=== PATIENT | female | born 1980 | race Caucasian/White ===

== ENCOUNTER 2017-02-11 20:30 | Emergency (ER) | payer BC ==
[2017-02-11 20:45] VITALS: BP 140/84
[2017-02-11] MEDS ORDERED: Bacitracin/Neomycin/Polymyxin B Oint 0.9 GM U/D Packet TOP ONE (21:53)
--- NOTE | 2017-02-11 22:07 | EDM.PDOC ---
ED HPI GENERAL MEDICAL PROBLEM - General Chief Complaint: General Stated Complaint: fall, lt shoulder pain Time Seen by Provider: 02/11/17 20:56 Source of Information: Reports: Patient History Limitations: Reports: No limitations - History of Present Illness INITIAL COMMENTS - FREE TEXT/NARRATIVE: Patient tripped on edge of decorative stone path and fell. Took most of the fall on the left shoulder area. Complains of left shoulder pain, left upper chest pain, bruising/scuffs right hand, and bruising on arms/legs/left breast. No LOC. Denies hitting head. Right knee is a bit sore but she is able to ambulate. No other complaints. ROS performed. Patient has some tingling in left arm since fall. No specific dermatomal pattern. ROS otherwise unremarkable except for above complaints. Patient has multiple chronic medical conditions including immune dysfunction and chronic pain. She also has numerous drug allergies and is on a large number of daily medications. This includes Plavix and Warfarin. She has had multiple clotting issues in past. Also recently on Lovenox after having surgery. Left Shoulder Pain Score (Numeric/FACES): 10 - Related Data Allergies Allergy/AdvReac Type Severity Reaction Status Date / Time aspirin Allergy Hives Verified 02/11/17 20:46 cefaclor Allergy Nausea and Verified 02/11/17 20:46 Vomiting cefmenoxime Allergy Nausea and Verified 02/11/17 20:46 Vomiting cefuroxime [From Ceftin] Allergy Nausea and Verified 02/11/17 20:46 Vomiting clarithromycin Allergy Hives Verified 02/11/17 20:46 erythromycin base Allergy Hives Verified 02/11/17 20:46 fentanyl Allergy Hallucinati Verified 02/11/17 20:46 ons ketorolac [From Toradol] Allergy Other Verified 02/11/17 20:46 metronidazole [From Flagyl] Allergy Nausea and Verified 02/11/17 20:46 Vomiting Penicillins Allergy Hives Verified 02/11/17 20:46 simvastatin Allergy Rash Verified 02/11/17 20:46 Sulfa (Sulfonamide Allergy Hives Verified 02/11/17 20:46 Antibiotics) vancomycin Allergy Redness Verified 02/11/17 20:46 Home Meds: Home Meds Acyclovir [Zovirax] 400 mg PO BID 08/02/16 [History] Cetirizine [ZyrTEC] 10 mg PO DAILY 08/02/16 [History] Clopidogrel [Plavix] 75 mg PO DAILY 08/02/16 [History] Docusate Sodium [Colace] 100 mg PO DAILY 08/02/16 [History] Gabapentin [Neurontin] 600 mg PO DAILY 08/02/16 [History] Gabapentin [Neurontin] 900 mg PO BEDTIME 08/02/16 [History] InFLIXimab [Remicade] 600 mg IV ASDIRECTED 08/02/16 [History] L.acidoph,Paracasei, B.lactis [Probiotic] 1 each PO DAILY 08/02/16 [History] LORazepam 1 mg PO BID PRN 08/02/16 [History] Levothyroxine Sodium [Synthroid] 175 mcg PO DAILY 08/02/16 [History] Mirtazapine 45 mg PO BEDTIME 08/02/16 [History] Multivitamin [Multi-Day Vitamins] 1 tab PO 1200 08/02/16 [History] Ondansetron [Zofran ODT] 4 mg SL Q6HR 08/02/16 [History] Pentamidine Isethionate [Nebupent] 300 mg IH ASDIRECTED 08/02/16 [History] Phytonadione [Vitamin K] 100 mcg PO DAILY 08/02/16 [History] Polyethylene Glycol 3350 [MiraLAX] 17 gm PO DAILY 08/02/16 [History] Rosuvastatin Calcium [Crestor] 5 mg PO DAILY 08/02/16 [History] Warfarin Sodium [Coumadin] 7.5 mg PO ASDIRECTED 08/02/16 [History] predniSONE [Prednisone] 5 mg PO BID 08/02/16 [History] Folic Acid 1 mg PO DAILY 10/21/16 [History] Methotrexate [Methotrexate] 1 ml SUBCUT WEEKLY 10/21/16 [History] Ascorbic Acid [Vitamin C] 500 mg PO DAILY 02/11/17 [History] Cetirizine HCl 10 mg PO DAILY 02/11/17 [History] Cholecalciferol (Vitamin D3) [Vitamin D3] 1,000 unit PO DAILY 02/11/17 [History] Cyclobenzaprine HCl 10 mg PO BID PRN 02/11/17 [History] Halobetasol Propionate [Ultravate] 15 gm TP ASDIRECTED PRN 02/11/17 [History] OXcarbazepine [Trileptal] 2 tab PO BEDTIME 02/11/17 [History] Pantoprazole Sodium [Protonix] 40 mg PO BEDTIME 02/11/17 [History] Vancomycin HCl 250 mg PO ASDIRECTED 02/11/17 [History] hydrOXYzine HCl [Atarax] 25 mg PO BEDTIME PRN 02/11/17 [History] oxyCODONE HCl/Acetaminophen [oxyCODONE-Acetaminophen 5-325] 1 - 2 tab PO Q6H PRN 02/11/17 [History] Past Medical History HEENT History: Reports: Allergic rhinitis, Impaired vision Cardiovascular History: Reports: High cholesterol Other Cardiovascular History: Takayasu Arteritis Respiratory History: Reports: PE Gastrointestinal History: Reports: Cholelithiasis, GERD, Irritable bowel syndrome Other Gastrointestinal History: Mesinteric artery disease. Stents x 4 Musculoskeletal History: Reports: Arthritis, Back pain, chronic, Other (see below) Other Musculoskeletal History: chronic inflammatory arthritis, neuropathic pain , abdominal pain Neurological History: Reports: Migraines, Other (see below) Other Neuro History: neuropathic pain Psychiatric History: Reports: Bipolar, PTSD, Other (see below) Other Psychiatric History: insomnia Endocrine/Metabolic History: Reports: Hypothyroidism, Obesity/BMI 30+, Other ( see below) Other Endocrine/Metabolic History: leah's thyroiditis Other Hematologic History: Antiphosolipid antibody syndrome Dermatologic History: Reports: Eczema - Infectious Disease History Infectious Disease History: Reports: C-difficile - Past Surgical History HEENT Surgical History: Reports: Oral surgery, Other (see below) Other HEENT Surgeries/Procedures: recent teeth removal GI Surgical History: Reports: Cholecystectomy, Other (see below) Other GI Surgeries/Procedures: Spleenectomy. Abdominal Wall Surgery x 2. Part of colon removed Social & Family History - Tobacco Use Smoking Status *Q: Never Smoker Second Hand Smoke Exposure: No - Caffeine Use Caffeine Use: Reports: Tea Other Caffeine Use: 2 cups green tea a day - Recreational Drug Use Recreational Drug Use: No ED ROS GENERAL - Review of Systems Review Of Systems: ROS reveals no pertinent complaints other than HPI. ED EXAM, GENERAL - Physical Exam Exam: See Below Exam Limited By: No limitations General Appearance: alert, mild distress (holding left arm/shoulder close to body, appears uncomfortable when she moves the left arm. ), obese Eye Exam: bilateral eye: EOMI, PERRL Ears: normal external exam, normal canal, hearing grossly normal, normal TMs Nose: normal inspection. No: no blood Throat/Mouth: Normal inspection, Normal oropharynx, Normal voice, No airway compromise, Other (Has had all of upper teeth removed. Missing some lower teeth also. ) Head: atraumatic, normocephalic Neck: normal inspection, supple, non-tender, full range of motion Respiratory/Chest: no respiratory distress, lungs clear, normal breath sounds, no accessory muscle use, other (Tender over left upper anterior chest/clavicle.) Cardiovascular: normal peripheral pulses, regular rate, rhythm, no murmur GI/Abdominal: soft, non tender (Female) Exam: Deferred Rectal (Female) Exam: Deferred Back Exam: normal inspection. No: muscle spasm, paraspinal tenderness, vertebral tenderness Extremities: normal range of motion, normal capillary refill, other (some bruising noted to both thighs and knees. Able to flex/extend joints upper and lower limbs. ) Neurological: alert, oriented, normal cognition, normal gait, normal reflexes, no motor/sensory deficits Psychiatric: anxious Skin Exam: Warm, Dry, Ecchymosis (numerous bruises noted upper and lower extremities, left upper breast. ). No: Diaphoretic, Erythema Course - Vital Signs Last Recorded V/S: Last Vital Signs Temp 36.4 C 02/11/17 20:32 Pulse 87 02/11/17 20:32 Resp 18 02/11/17 20:32 BP 140/84 02/11/17 20:32 Pulse Ox 100 02/11/17 20:32 - Orders/Labs/Meds Orders: Active Orders 24 hr Category Date Time Status Chest 1V Frontal [CR] Stat Exams 02/11/17 21:36 Taken Hand Comp Min 3V Rt [CR] Stat Exams 02/11/17 21:37 Taken Shoulder Comp Lt [CR] Stat Exams 02/11/17 20:43 Taken Labs: Laboratory Tests 02/11/17 Range/Units 20:45 PT 21.6 H (9.8-11.7) SEC INR 2.0 Meds: Medications Discontinued Medications Generic Name Dose Route Start Last Admin Trade Name Freq PRN Reason Stop Dose Admin Neomycin/Polymyxin/Bacitracin 1 each 02/11/17 21:53 02/11/17 22:16 Triple Antibiotic Oint TOP 02/11/17 21:54 1 each ONETIME ONE Administration - Radiology Interpretation Free Text/Narrative:: Xrays taken of right hand, chest, left shoulder. No obvious fractures noted. Reviewed by Radiology. They noted no acute injuries. - Re-Assessments/Exams Free Text/Narrative Re-Assessment/Exam: At this time patient appears to have sustained soft tissue injury and bruising from the fall, but no fractured noted. Abrasions right hand cleaned and bandaged by nursing. Antibiotic ointment applied. SHoulder immobilizer given to help with discomfort in left shoulder. Numerous bruises anticipated given patient's use of anticoagulants. INR of 2. Conservative treatment at this time is planned. Patient has pain medication at home. Requested patient to follow up with primary provider next week for recheck. Precautions reviewed at time of discharge. Departure - Departure Time of Disposition: 22:07 Disposition: Home, Self-Care 01 Condition: good Clinical Impression: Multiple contusions, Abrasions of multiple sites Fall Qualifiers: Encounter type: initial encounter Qualified Code(s): W19.XXXA - Unspecified fall, initial encounter Injury of left shoulder Qualifiers: Encounter type: initial encounter Qualified Code(s): S49.92XA - Unspecified injury of left shoulder and upper arm, initial encounter Referrals: PCP,Unknown [Primary Care Provider] - Forms: ED Department Discharge Additional Instructions: Ice sore areas frequently. Take your regular medications including pain medications as prescribed. Wear shoulder immobilizer for comfort. Recommend follow up with primary provider early next week for recheck. You may need additional imaging of the left shoulder to rule out tendon/ligament injury if problems persist. At this point in time there do not appear to be any fractures. Repeat films may be needed in 1-2 weeks to recheck for fractures in pain persists. - My Orders Last 24 Hours: My Active Orders 02/11/17 20:43 Shoulder Comp Lt [CR] Stat 02/11/17 21:36 Chest 1V Frontal [CR] Stat 02/11/17 21:37 Hand Comp Min 3V Rt [CR] Stat - Assessment/Plan Last 24 Hours: My Active Orders 02/11/17 20:43 Shoulder Comp Lt [CR] Stat 02/11/17 21:36 Chest 1V Frontal [CR] Stat 02/11/17 21:37 Hand Comp Min 3V Rt [CR] Stat
== END 2017-02-11 22:26 | disposition home or self-care (01) ==
LOC: LL.ED 20:30
DX: S49.92XA Unspecified injury of left shoulder and upper arm, initial encounter (principal); E78.00 Pure hypercholesterolemia, unspecified; K21.9 Gastro-esophageal reflux disease without esophagitis; E03.9 Hypothyroidism, unspecified; E66.9 Obesity, unspecified; Z79.899 Other long term (current) drug therapy; Z88.2 Allergy status to sulfonamides; Z90.49 Acquired absence of other specified parts of digestive tract; Z88.8 Allergy status to other drugs, medicaments and biological substances; W19.XXXA Unspecified fall, initial encounter
CPT/HCPCS: 36415; 71010; 73030-LT; 73130-RT; 85610; 99283

== ENCOUNTER 2022-09-22 07:16 | Emergency (ER) | payer BC ==
[2022-09-22 07:21] VITALS: BP 129/72; PULSE 89
[2022-09-22] MEDS ORDERED: Morphine 2 MG/ML SYRINGE IM ONE (07:55)
== END 2022-09-22 09:15 | disposition home or self-care (01) ==
LOC: LL.ED 07:16
DX: S93.402A Sprain of unspecified ligament of left ankle, initial encounter (principal); S20.229A Contusion of unspecified back wall of thorax, initial encounter; S50.12XA Contusion of left forearm, initial encounter; E78.00 Pure hypercholesterolemia, unspecified; E03.9 Hypothyroidism, unspecified; E66.9 Obesity, unspecified; Z88.0 Allergy status to penicillin; Z88.1 Allergy status to other antibiotic agents; Z88.8 Allergy status to other drugs, medicaments and biological substances; Z79.899 Other long term (current) drug therapy; Z68.42 Body mass index [BMI] 45.0-49.9, adult; Z79.01 Long term (current) use of anticoagulants; W00.1XXA Fall from stairs and steps due to ice and snow, initial encounter
CPT/HCPCS: 73610; 96372; 99284; J2270

== ENCOUNTER 2025-09-20 21:05 | Emergency (ER) | payer BC ==
[2025-09-20] MEDS: Nitroglycerin 0.4 MG Tab.SL SL PRN (21:12)
[2025-09-20 21:27] LABS: BASOPHILS ABSOLUTE AUTO 0.03 K/uL (0.00-0.20); BASOPHILS PERCENT AUTO 0.5 % (0.0-2.0); EOSINOPHILS ABSOLUTE AUTO 0.03 K/uL (0.00-0.50); EOSINOPHILS PERCENT AUTO 0.5 % (0.0-5.0); IMMATURE GRAN ABSOLUTE AUTO 0.01 10^3/uL (0.00-0.04); IMMATURE GRAN PERCENT AUTO 0.2 % (0.0-0.4); LYMPHOCYTES ABSOLUTE AUTO 1.99 K/uL (0.50-3.50); LYMPHOCYTES PERCENT AUTO 31.4 % (10.0-50.0); MONOCYTES ABSOLUTE AUTO 0.65 K/uL (0.00-1.00); MONOCYTES PERCENT AUTO 10.3 % (2.0-14.0); NEUTROPHILS ABSOLUTE AUTO 3.63 K/uL (1.40-7.00); NEUTROPHILS PERCENT AUTO 57.1 % (45.0-80.0); PLATELET COUNT,PLT 365 K/uL (150-350); RED BLOOD CELL COUNT 3.65 M/uL (3.77-5.09); RED CELL DISTRIBUTION WIDTH 15.0 % (11.2-14.1); WHITE BLOOD CELL COUNT,WBC 6.3 K/uL (4.0-10.2)
[2025-09-20] MEDS: Sodium Chloride 0.9% 10 ML Syringe FLUSH PRN (21:42)
[2025-09-20 21:59] LABS: ALANINE AMINOTRANSFERASE,ALT 34 U/L (12-78); ASPARTATE AMNIOTRANSFERASE,AST 21 U/L (15-37); BILIRUBIN TOTAL 0.5 mg/dL (0.2-1.0); BLOOD UREA NITROGEN,BUN 13 mg/dL (7-18); CARBON DIOXIDE,CO2 25.7 mmol/L (21.0-32.0); CHLORIDE,CL 106 mmol/L (98-107); CREATININE 0.70 mg/dL (0.51-1.17); EST CRCL DRUG DOSING (CG) 87.64 mL/min; GLUCOSE RANDOM 102 mg/dL (70-99); POTASSIUM,K 4.0 mmol/L (3.5-5.1); PROTEIN TOTAL,TP 6.4 g/dL (6.4-8.2); SODIUM,NA 142 mmol/L (136-145)
[2025-09-20 22:00] LABS: ESTIMATED GFR 109 mL/min (>=60)
[2025-09-20 22:10] LABS: INR 4.0 (0.9-1.1); PTT,PARTIAL THROMBOPLSTIN TIME 37.7 SEC (23.8-34.4)
[2025-09-20 22:15] VITALS: BP 115/61; PULSE 70
[2025-09-20] MEDS: methylPREDNISolone Sodium Succinate 125 MG/2 ML SDV IV ONE (22:22)
[2025-09-20] MEDS: Take Home: predniSONE 20 MG, 4 Tab Pack PO ONE (22:33)
== END 2025-09-20 22:37 | disposition home or self-care (01) ==
LOC: LL.ED 21:05
DX: R07.89 Other chest pain (principal); E78.00 Pure hypercholesterolemia, unspecified; E03.9 Hypothyroidism, unspecified; E66.9 Obesity, unspecified; K21.9 Gastro-esophageal reflux disease without esophagitis; M19.90 Unspecified osteoarthritis, unspecified site; Z79.899 Other long term (current) drug therapy; Z79.01 Long term (current) use of anticoagulants; Z88.1 Allergy status to other antibiotic agents; Z88.6 Allergy status to analgesic agent; Z88.8 Allergy status to other drugs, medicaments and biological substances; Z88.0 Allergy status to penicillin; Z88.2 Allergy status to sulfonamides; Z90.49 Acquired absence of other specified parts of digestive tract; Z68.41 Body mass index [BMI] 40.0-44.9, adult
CPT/HCPCS: 36415; 71045; 80053; 84484; 85025; 85379; 85610; 85730; 93005; 93010; 96374; 96375; 99284; 99285-25; A9270-GY; J1171; J2270; J2919